=== PATIENT | male | born 2005 | race Caucasian/White ===

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

== ENCOUNTER 2023-01-09 08:32 | Outpatient (CLI) | payer BC, SELFPAY ==
--- NOTE | 2023-01-11 16:22 | WPDHOMESLEEP ---
Sleep Study - Home Unattended Date of Study: 01/09/23 Ordering Provider: Martín Pacheco APRN Interpreting Provider: Priscila Nieto MD Home Sleep Study Type: Watch PAT Height: 1.83 m Weight: 136.078 kg Body Mass Index: 40.6 Neck Circumference (inches): 18 Barron: 6 Reason for Sleep Study Daytime hypersomnia Sleep History Louis Blake is a 17-year-old male with history of depression who underwent a home sleep test for evaluation of daytime hypersomnia. He never awakens from sleep short of breath. He constantly awakens at night with heartburn, belching or cough. He occasionally snores and snores loudly enough for others to complain. He constantly has trouble sleeping when he has a cold. He never wakes up gasping for breath during the night. He frequently has breathing problems at night. He frequently sweats excessively at night. He occasionally falls asleep during the day. He occasionally falls asleep involuntarily, rarely falls asleep while driving. He never notices his heart pounding or beating irregularly during the night. He rarely experiences loss of muscle tone with strong emotion. He rarely feels paralyzed on waking or falling asleep. He occasionally experiences vivid dreams upon waking or falling asleep. He does not feel afraid of going to sleep. He occasionally has nightmares. He frequently recalls his dreams. He frequently has thoughts racing through his mind. He rarely feels sad or depressed. He occasionally feels anxiety or worry about things. He rarely notices parts of his body jerk. He never kicks during the night. He never feels crawling or aching feelings in his legs. He rarely feels leg pain at night. He does not grind his teeth during sleep and or wake with morning jaw pain. He never feels bothered by pain during the day and is rarely awakened by pain during the night. He rarely wakes up feeling stiff in the morning and occasionally wakes up feeling sore and achy in the morning with pain in his neck, spine, or joints. Normal bedtime is around 11pm to midnight on the weekdays and even later on the weekends, usually falling asleep within 30 minutes. He typically gets about 7 to 8 hours of sleep per night. His wake up time is around 8am on the weekdays and 7:30am on the weekends. He typically wakes up around one time per night and can be awake for 30 minutes, usually looking at his phone until he goes back to sleep. He takes naps in the afternoon or evening. Habits: Never tobacco smoker. Drinks about 2 caffeinated beverages per day. No alcohol or recreational substances. [facility] Past Medical History Medical History (Updated 01/11/23 @ 16:27 by Priscila Nieto MD) Depression Hypersomnia No pertinent past medical history Obesity, Class III, BMI 40-49.9 (morbid obesity) Sebaceous cyst of ear Surgical History Surgical History No pertinent past surgical history Family History Family History Father Diabetes mellitus Depression Mother Hypertension Grandparent Cancer Social History Social History Smoking status: Never smoker Alcohol intake: never Substance use: never Substance use type: does not use Lack of Transportation: No Lack of Food: Never True Current Housing: I Have Housing Concerned About Future Housing: No Difficulty Paying Gas/Electric Bills: No Difficulty Paying for Meds: No Currently Unemployed: No Education: High School Diploma/GED Difficulty w/ Childcare or Family Care: No Living arrangements: with family Spiritual care concerns: No Medications Home Medications Medication Instructions Recorded Confirmed Type escitalopram oxalate 10 mg tablet 10 mg PO DAILY 10/24/22 12/29/22 History cephalexin 500 mg capsule 500 mg PO Q12H #14 caps 12/29/22 Rx oxycodone 5 mg tablet 5 mg PO Q12H PRN pa
[2023-01-11 16:31] VITALS: BMI 40.6
== END 2023-01-10 12:34 | disposition home or self-care (01) ==
LOC: ANHCSM 08:33
PROVIDERS: PCP Physician Assistant; Visit Provider Nurse Practitioner Family
DX: G47.10 Hypersomnia, unspecified (principal); G47.33 Obstructive sleep apnea (adult) (pediatric)
CPT/HCPCS: 95800